=== PATIENT | female | born 1970 | race Caucasian/White ===

== ENCOUNTER 2024-07-12 22:04 | Emergency (ER) | payer SELFPAY ==
--- NOTE | ~2024-07-12 | XR_ITS ---
XR chest 2V Ordering provider: Ras Harris MD History: 53 years Female with . cp . Comparison: August 17, 2021 FINDINGS: MEDIASTINUM: The cardiac silhouette is not enlarged. LUNGS: No infiltrates, effusions or pneumothorax. OTHER: No free air under the diaphragm. IMPRESSION: No acute cardiopulmonary pathology. Reviewed, dictated and finalized at location A. 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
--- NOTE | 2024-07-12 22:06 | ECG_ITS ---
Test Date: 2024-07-12 22:11:44 Measurements Intervals [place] Rate: 75 P: 66 CO: 124 QRS: 52 QRSD: 76 T: 77 QT: 385 QTc: 431 Interpretive Statements SINUS RHYTHM No previous ECG available for comparison Electronically Signed On 07-13-2024 22:52:48 APRON WORKER by Scarlett Vasquez M.D.
[2024-07-12 22:07] VITALS: BP 107/66; PULSE 72; RESP 15; TEMP 36.2; O2SAT 97
[2024-07-12] MEDS: ASPIRIN 81 MG CHEWABLE TABLET 324 MG PO (22:14)
[2024-07-12 22:26] LABS: Basophils Percent Auto 0.3 % (0.2-1.2); Eosinophils Percent Auto 0.7 % (0-4.4); Hemoglobin 13.5 g/dL (12.0-15.0); Immature Granulocyte Absolute 0.01 K/mm3 (0.00-0.031); Immature Granulocyte Percent A 0.3 % (0-0.5); Lymphocytes Absolute Auto 0.55 K/mm3 (0.9-3.2); Lymphocytes Percent Auto 17.9 % (18.3-44.2); Mean Corpuscular HGB Conc 34.6 g/dl (32-36); Mean Corpuscular Hemoglobin 32.1 pg (26-34); Mean Corpuscular Volume 92.9 fl (80-100); Mean Platelet Volume 9.1 fl (7.4-10.4); Monocytes Absolute Auto 0.2 K/mm3 (0.1-0.6); Monocytes Percent Auto 6.8 % (2.6-8.5); Neutrophils Absolute Auto 2.3 K/mm3 (1.3-6.7); Platelet Count Result 160 k/mm3 (150-375); Red Cell Distribution Width 11.9 % (11.5-14.5); White Blood Count 3.1 K/mm3 (4.5-10.0)
[2024-07-12 22:37] LABS: Sodium 131 mmol/L (137-145)
[2024-07-12 22:40] LABS: Alanine Aminotransferase 35 U/L (6-35); Albumin Level 3.8 g/dL (3.5-5.1); Alkaline Phosphatase 52 U/L (38-126); Anion Gap 3 mmol/L (4-12); Aspartate Amino Transferase 43 U/L (14-36); Bilirubin,Total 0.3 mg/dL (0.2-1.3); Blood Urea Nitrogen 14 mg/dL (7-17); Calcium 8.7 mg/dL (8.4-10.2); Carbon Dioxide 27 mmol/L (22-30); Chloride 101 mmol/L (98-107); Estimated CRCL calculation 69 ml/min; Estimated Glomerular Filt Rate > 60; Glucose 129 mg/dL (65-110); Lipase 180 U/L (23-300); Potassium 3.6 mmol/L (3.4-5.0)
[2024-07-12 22:42] LABS: Prothrombin Time 13.9 Seconds (11.1-14.7)
[2024-07-12 22:43] LABS: Partial Thromboplastin Time 27.8 Seconds (22.3-36.8)
[2024-07-12 22:51] LABS: Troponin I < 0.012 ng/mL (0.000-0.034)
--- NOTE | 2024-07-12 23:00 | PC.NURSE ---
Patient's came up to the counter and stated the patient feels better and they want to leave. Instructed to come back to ED if symptoms worsen and to follow up PCP.
== END 2024-07-13 00:56 | disposition left against medical advice (07) ==
LOC: ANHED 23:50
PROVIDERS: Emergency Provider Emergency Medicine
DX: R07.9 Chest pain, unspecified (principal)
CPT/HCPCS: 36415; 71046; 80053; 83690; 84484; 85025; 85610; 85730; 93005; 99199; A9270

== ENCOUNTER 2024-09-30 14:09 | Outpatient (CLI) | payer OTHER, SELFPAY ==
--- NOTE | ~2024-09-30 | XR_ITS ---
XR hand RT 2V Ordering provider: Chay Collier, DC CCST History: . BI hand pain . Comparison: None. FINDINGS: BONES: No acute fracture or dislocation. JOINT SPACES: Normal. SOFT TISSUES: Normal. IMPRESSION: No acute osseous abnormality right hand. Reviewed, dictated and finalized at location A.
--- NOTE | ~2024-09-30 | XR_ITS ---
XR_[id number]_CR Ordering provider: Chay Collier, DC CCST History: . Neck pain . Comparison: None. FINDINGS: VERTEBRAL BODIES: Normal height and alignment. No visible fracture or subluxation. The dens is intact . DISK SPACES: Well maintained. PARASPINOUS SOFT TISSUES: No prevertebral soft tissue swelling. IMPRESSION: No acute osseous abnormality cervical spine. Reviewed, dictated and finalized at location A.
--- NOTE | ~2024-09-30 | XR_ITS ---
SINGLE AP VIEW PELVIS Ordering provider: Chay Collier, DC CCST History: . BI SI pain . Comparison: None. FINDINGS: BONES: No acute fracture or dislocation. HIP JOINT SPACES: Normal. SACROILIAC JOINT SPACES/LUMBAR SPINE: The sacroiliac joint spaces shows bilateral sacroiliitis more o n the right side. Mild degenerative changes of the visualized lower lumbar spine. PUBIC SYMPHYSIS: Normal. SOFT TISSUES: Normal. IMPRESSION: No acute osseous abnormality pelvis. Bilateral sacroiliitis more on the right side. Reviewed, dictated and finalized at location A.
--- NOTE | ~2024-09-30 | XR_ITS ---
3 VIEWS THORACIC SPINE Ordering provider: Chay Collier, DC CCST History: . T/S pain . Comparison: None. FINDINGS: VERTEBRAL BODIES: Normal height and alignment. No visible fracture or subluxation. DISK SPACES: Normal. SOFT TISSUES: Normal. IMPRESSION: No acute osseous abnormality of the thoracic spine. Reviewed, dictated and finalized at location A.
--- NOTE | ~2024-09-30 | XR_ITS ---
3 VIEWS LUMBAR SPINE Ordering provider: Chay Collier, DC CCST History: . Low back pain . Comparison: None. FINDINGS: VERTEBRAL BODIES: No visible fracture or subluxation. Degenerative changes of the spine. DISK SPACES: Degenerative disc disease at the level of L5-S1. Facet joint disease at the level of L4- L5 and L5-S1. SOFT TISSUES: Normal. IMPRESSION: No acute osseous abnormality lumbar spine. Degenerative disc disease at the level of L5-S1. Reviewed, dictated and finalized at location A.
--- NOTE | ~2024-09-30 | XR_ITS ---
XR hand LT 2V Ordering provider: Chay Collier, DC CCST History: . BI hand pain . Comparison: None. FINDINGS: BONES: No acute fracture or dislocation. JOINT SPACES: Well maintained. SOFT TISSUES: Unremarkable. IMPRESSION: No acute osseous abnormality left hand. Reviewed, dictated and finalized at location A.
== END 2024-09-30 14:10 | disposition home or self-care (01) ==
PROVIDERS: PCP Chiropractor; Visit Provider Chiropractor
DX: M54.2 Cervicalgia (principal); M54.50 Low back pain, unspecified; M46.1 Sacroiliitis, not elsewhere classified; M51.379 Other intervertebral disc degeneration, lumbosacral region without mention of lumbar back pain or lower extremity pain
CPT/HCPCS: 72040; 72070; 72100; 72170; 73120